=== PATIENT | female | born 1995 ===

== ENCOUNTER 2022-10-31 20:10 | Emergency (ER) | payer MEDICAID ==
[~2022-10-31] VITALS: Ht 167.6 cm; Wt 118.0 kg
[2022-10-31 21:11] VITALS: BP 212/151; O2SAT 100
[2022-10-31] MEDS ORDERED: CLIN-194 MT (23:32)
[2022-10-31 23:59] VITALS: PULSE 85; RESP 16; TEMP 98.3
== END 2022-11-01 00:02 | disposition home or self-care (01) ==
LOC: ER 20:10
DX: L02.213 Cutaneous abscess of chest wall (principal); N63.0 Unspecified lump in unspecified breast
CPT/HCPCS: 10060; 99283